=== PATIENT | male | born 1975 | race Hispanic/Latino ===

== ENCOUNTER 2022-11-11 11:43 | Emergency (ER) | payer BC ==
[~2022-11-11] VITALS: Ht 182.9 cm; Wt 106.6 kg
[2022-11-11] MEDS ORDERED: 0.9%NACL 1000ML 777 ML IV ONE (12:30)
[2022-11-11 12:48] LABS: BASOPHILS % (AUTO) 0.6 % (0.0-5.0); EOSINOPHILS % (AUTO) 0.4 % (0.0-8.0); HEMATOCRIT 37.6 % (42-54); LYMPHOCYTES % (AUTO) 9.2 % (21.0-51.0); MEAN CORPUSCULAR HEMOGLOBIN 29.8 pg (27.0-33.0); MEAN CORPUSCULAR HGB CONC 32.7 g/dL (32.0-36.0); NEUTROPHILS % (AUTO) 79.4 % (40.0-77.0); PLATELET COUNT (AUTO) 363 K/uL (130-400); RED BLOOD CELL COUNT(AUTO) 4.13 MIL/uL (4.50-6.20); RED CELL DISTRIBUTION WIDTH 13.6 % (11.0-15.5); WHITE BLOOD COUNT (AUTO) 15.7 K/uL (4.8-10.8)
[2022-11-11 12:57] LABS: AMMONIA < 10 umol/L (11-32); AMYLASE 25 U/L (25-115)
[2022-11-11 13:02] LABS: CREATININE 0.8 mg/dL (0.5-1.5); POTASSIUM 3.6 mmol/L (3.5-5.1)
[2022-11-11 13:07] LABS: ALBUMIN 3.2 g/dL (3.5-5.0); TOTAL PROTEIN, SERUM 7.9 g/dL (6.0-8.3)
[2022-11-11] MEDS ORDERED: IOHEXOL 350 MG/ML 100ML INFUS..BTL IV ONE (13:49)
[2022-11-11 14:45] LABS: APPEARANCE,URINE CLEAR (CLEAR); BILIRUBIN,URINE NEGATIVE (NEGATIVE); COLOR,URINE YELLOW (YELLOW); GLUCOSE, URINE (UA) NEGATIVE (NEGATIVE); KETONES,URINE 20 mg/dL (NEGATIVE); LEUKOCYTE ESTERASE ,URINE NEGATIVE Leu/uL (NEGATIVE); NITRATE,URINE NEGATIVE (NEGATIVE); PROTEIN,URINE 30 mg/dL (NEGATIVE); UROBILINOGEN,URINE 0.2 mg/dL (0.2-1.0)
[2022-11-11 14:51] LABS: BACTERIA,URINE RARE /HPF (None Seen); MUCUS,URINE RARE LPF (None Seen); SQUAMOUS EPITHELIAL CELL,UR RARE /HPF (0-2)
[2022-11-11 15:37] LABS: AMPHET/METH SCREEN,URINE NEGATIVE (NEGATIVE); BARBITURATE SCREEN, URINE NEGATIVE (NEGATIVE); BENZODIAZEPINES SCREEN,URINE POSITIVE (NEGATIVE); CANNABINOID SCREEN,URINE NEGATIVE (NEGATIVE); COCAINE SCREEN,URINE NEGATIVE (NEGATIVE); OPIATE SCREEN,URINE POSITIVE (NEGATIVE); PHENCYCLIDINE SCREEN,URINE NEGATIVE (NEGATIVE)
[2022-11-11] MEDS ORDERED: KETOROLAC 30MG VIAL (30MG/ML) IVP ONE (16:30)
[2022-11-11] MEDS ORDERED: CEFTRIAXONE 1G VIAL IVPB ONE (20:30)
[2022-11-11] MEDS ORDERED: MORPHINE 4 MG SYG IVP ONE (21:30)
[2022-11-11] MEDS ORDERED: ONDANSETRON 4MG INJ IVP ONE (21:30)
[2022-11-12] MEDS ORDERED: VANCOMYCIN KIT 1 GM/250 ML IV.KIT IV SCH (08:00)
[2022-11-12] MEDS ORDERED: MORPHINE 2 MG SYG IVP ONE ×2 (10:00→19:00)
[2022-11-12] MEDS ORDERED: DEXAMETHASONE SOD PHOSPHATE 4 MG/ML 1ML VIAL IVP ONE (15:00)
[2022-11-12 16:27] VITALS: BP 116/73
[2022-11-12] MEDS ORDERED: AMPICILLIN/SULBAC 1.5GM VIAL IV SCH (17:00)
[2022-11-12] MEDS ORDERED: MORPHINE 2 MG SYG ONE (18:44)
[2022-11-12] MEDS ORDERED: METRONIDAZOLE 500MG/100ML BAG 100 ML IVPB SCH (22:00)
== END 2022-11-12 21:08 | disposition short-term general hospital (02) ==
LOC: EDH 11:43
DX: K12.2 Cellulitis and abscess of mouth (principal); D72.829 Elevated white blood cell count, unspecified; Z20.822 Contact with and (suspected) exposure to COVID-19
CPT/HCPCS: 99285; 70450; 96365; 96375 ×3; 87635; 96361; 82150; 82550; 80053; 80305; 82140; 85025; 87040 ×2; 87088; 83605; 36415; 70487; 70491; 81001; 96366; 96367; 96376 ×2; C9803; J7030; J0696; J2405; J2270 ×3; J1885; Q9967; J1100; J3370; J0295